=== PATIENT | male | born 1980 | race Hispanic/Latino ===

== ENCOUNTER 2019-11-10 05:14 | Emergency (ER) | payer BC, SELFPAY ==
[2019-11-10] MEDS ORDERED: VALACYCLOVIR 500 MG TAB ONE (05:36)
[2019-11-10] MEDS ORDERED: predniSONE 20 MG TAB ONE (05:37)
--- NOTE | 2019-11-10 10:00 | EDPHYS ---
Physician Documentation [facility] Name: Santhosh Flannery Age: 39 yrs Sex: Male : 1980 Arrival Date: 11/10/2019 Time: 05:19 Bed 5 Private MD: ED Physician Hans Celis HPI: 11/10 05:30 This 39 yrs old Male presents to ER via Ambulatory with complaints of right sided tw4 facial numbness. 05:30 The patient presents to the emergency department with paresthesias of the right side of tw4 the face, that is moderate. Onset: The symptoms/episode began/occurred 2 day(s) ago. Context: occurred at home. Associated signs and symptoms: The patient has no apparent associated signs or symptoms. Severity of symptoms: At their worst the symptoms were moderate. Patient's baseline: Neuro: alert and fully oriented, Motor: no deficits, Ambulation: walks without assistance. 2 day(s) ago, The patient has not experienced similar symptoms in the past. Historical: - Allergies: 05:27 Bactrim; wh - Home Meds: 05:27 lisinopril 20 mg Oral tab 1 tab once daily [Active]; metformin 1,000 mg Oral tab 1 tab wh 2 times per day [Active]; carvedilol oral oral [Active]; - PMHx: 05:27 Diabetes - NIDDM; High Cholesterol; Hypertension; wh - Immunization history:: Adult Immunizations up to date, Flu vaccine is not up to date. - Coronavirus screen:: The patient has NOT traveled to [place], [place], or [place] in the past 14 days. - Social history:: Smoking status: Patient/guardian denies using. - Ebola Screening: : Patient negative for fever greater than or equal to 101.5 degrees Fahrenheit, and additional compatible Ebola Virus Disease symptoms Patient denies exposure to infectious person. ROS: 05:30 Neuro: Positive for numbness, weakness. tw4 06:45 Constitutional: Negative for fever, chills, and weight loss, Eyes: Negative for injury, tw4 pain, redness, and discharge, Cardiovascular: Negative for chest pain, palpitations, and edema, Respiratory: Negative for shortness of breath, cough, wheezing, and pleuritic chest pain, Abdomen/GI: Negative for abdominal pain, nausea, vomiting, diarrhea, and constipation, MS/Extremity: Negative for injury and deformity, Skin: Negative for injury, rash, and discoloration. Exam: 05:30 Constitutional: This is a well developed, well nourished patient who is awake, alert, tw4 and in no acute distress. Head/Face: Normocephalic, atraumatic. Chest/axilla: Normal chest wall appearance and motion. Nontender with no deformity. No lesions are appreciated. Cardiovascular: Regular rate and rhythm with a normal S1 and S2. No gallops, murmurs, or rubs. Normal PMI, no JVD. No pulse deficits. Respiratory: Lungs have equal breath sounds bilaterally, clear to auscultation and percussion. No rales, rhonchi or wheezes noted. No increased work of breathing, no retractions or nasal flaring. Abdomen/GI: Soft, non-tender, with normal bowel sounds. No distension or tympany. No guarding or rebound. No evidence of tenderness throughout. Back: No spinal tenderness. No costovertebral tenderness. Full range of motion. MS/ Extremity: Pulses equal, no cyanosis. Neurovascular intact. Full, normal range of motion. 05:30 Neuro: Orientation: is normal, Mentation: is normal, Memory: is normal, Cranial nerves: grossly normal. Vital Signs: 05:30 BP 142 / 97; Pulse 105; Resp 18; Temp 98.1; Pulse Ox 98% ; Weight 117.93 kg; Height 5 wh ft. 10 in. (177.80 cm); Pain 0/10; 06:15 BP 125 / 90; Pulse 92; Resp 18; Pulse Ox 95% on R/A; wh 05:30 Body Mass Index 37.31 (117.93 kg, 177.80 cm) NIH Stroke Scale Scores: 05:29 NIHSS Score: 1 MDM: 05:20 Patient medically screened. tw4 05:30 Data reviewed: vital signs, nurses notes. Data interpreted: Pulse oximetry: tw4 Interpretation: normal. Test interpretation: by ED physician or midlevel provider:. Counseling: I had a detailed discussion with the patient and/or guardian regarding: the historical points, exam findings, and any diagnostic results supporting the discharge/admit diagnosis. Special discussion: Based on the patient's history, exam and DX evaluation, there is no indication for emergent intervention or inpatient TX. It is understood by the patient/guardian that if the SXs persist or worsen they need to return immediately for re-evaluation. Administered Medications: 05:34 Drug: Valtrex 1000 mg Route: PO; 06:18 Follow up: Response: No adverse reaction jv1 05:34 Drug: predniSONE 60 mg Route: PO; 06:18 Follow up: Response: No adverse reaction jv1 Disposition: 11/10/19 06:05 Discharged to Home. Impression: Pastor's palsy. - Condition is Stable. - Discharge Instructions: Pastor Palsy, Adult. - Prescriptions for Valtrex 1 g Oral Tablet - take 1 tablet by ORAL route every 8 hours for 7 days; 21 tablet. Medrol (Héctor) 4 mg Oral Tablets, Dose Pack - take 1 tablet by ORAL route as directed - follow package instructions; 1 packet. - Medication Reconciliation Form, Thank You Letter, Antibiotic Education, Prescription Opioid Use form. - Follow up: Private Physician; When: Upon discharge from the Emergency Department; Reason: Recheck today's complaints, Continuance of care. Follow up: Gaurav Adan MD; When: Upon discharge from the Emergency Department; Reason: Recheck today's complaints, Continuance of care, Re-evaluation by your physician. - Problem is new. - Symptoms are unchanged. NIH Stroke Scale - NIH Stroke Score Date: 11/10/2019 Time: 05:29 Total Score = 1 1a. Level of Consciousness (LOC) - 0(Alert) 1b. Level of Consciousness (LOC) (Year \T\ Age) - 0(Both) 1c. LOC Commands (Open \T\ Closes Eyes/Cathode Washer) - 0(Both) 2. Best Gaze (Lateral Gaze Paresis) - 0(Normal) 3. Visual Field Loss - 0(No visual loss) 4. Facial Palsy - 1(Minor Paralysis) 5a. Left Arm: Motor (10-second hold) - 0(No drift) 5b. Right Arm: Motor (10-second hold) - 0(No drift) 6a. Left Leg: Motor (5-second hold - always test supine) - 0(No drift) 6b. Right Leg: Motor (5-second hold - always test supine) - 0(No drift) 7. Limb Ataxia (finger/nose \T\ heel/grey - test with eyes open) - 0(Absent) 8. Sensory Loss (pinprick arms/legs/face) - 0(Normal) 9. Best Language: Aphasia (description/naming/reading) - 0(No aphasia) 10. Dysarthria (speech clarity - read or repeat words) - 0(Normal) 11. Extinction and Inattention (visual/tactile/auditory/spatial/personal) - 0(No abnormality) Initials: Signatures: Christine Kovacs Hans Celis MD MD tw4 Bela Robles RN jv1 Corrections: (The following items were deleted from the chart) 06:06 06:05 11/10/2019 06:05 Discharged to Home. Impression: Pastor's palsy. Condition tw4 is Stable. Forms are Medication Reconciliation Form, Thank You Letter, Antibiotic Education, Prescription Opioid Use. Follow up: Private Physician; When: Upon discharge from the Emergency Department; Reason: Recheck today's complaints, Continuance of care. Problem is new. Symptoms are unchanged. tw4 06:21 06:06 11/10/2019 06:05 Discharged to Home. Impression: Pastor's palsy. Condition wh is Stable. Discharge Instructions: Pastor Palsy, Adult. Prescriptions for Valtrex 1 g Oral Tablet - take 1 tablet by ORAL route every 8 hours for 7 days; 21 tablet, Medrol (Héctor) 4 mg Oral Tablets, Dose Pack - take 1 tablet by ORAL route as directed - follow package instructions; 1 packet. and Forms are Medication Reconciliation Form, Thank You Letter, Antibiotic Education, Prescription Opioid Use. Follow up: Private Physician; When: Upon discharge from the Emergency Department; Reason: Recheck today's complaints, Continuance of care. Follow up: Gaurav Adan; When: Upon discharge from the Emergency Department; Reason: Recheck today's complaints, Continuance of care, Re-evaluation by your physician. Problem is new. Symptoms are unchanged. tw4
--- NOTE | 2019-11-10 10:01 | ER ---
Nurse's Notes [facility] Name: Santhosh Flannery Age: 39 yrs Sex: Male : 1980 Arrival Date: 11/10/2019 Time: 05:19 Bed 5 Private MD: Diagnosis: Pastor's palsy Presentation: 11/10 05:25 Presenting complaint: Patient states: Right facial numbness that started Thursday. Transition of care: patient was not received from another setting of care. Onset of symptoms was November 08, 2019. Risk Assessment: Do you want to hurt yourself or someone else? Patient reports no desire to harm self or others. Initial Sepsis Screen: Does the patient meet any 2 criteria? No. Patient's initial sepsis screen is negative. Does the patient have a suspected source of infection? No. Patient's initial sepsis screen is negative. Care prior to arrival: None. 05:25 Method Of Arrival: Ambulatory 05:25 Acuity: YAZMIN 3 Historical: - Allergies: 05:27 Bactrim; - Home Meds: 05:27 lisinopril 20 mg Oral tab 1 tab once daily [Active]; metformin 1,000 mg Oral tab 1 tab wh 2 times per day [Active]; carvedilol oral oral [Active]; - PMHx: 05:27 Diabetes - NIDDM; High Cholesterol; Hypertension; wh - Immunization history:: Adult Immunizations up to date, Flu vaccine is not up to date. - Coronavirus screen:: The patient has NOT traveled to [place], [place], or [place] in the past 14 days. - Social history:: Smoking status: Patient/guardian denies using. - Ebola Screening: : Patient negative for fever greater than or equal to 101.5 degrees Fahrenheit, and additional compatible Ebola Virus Disease symptoms Patient denies exposure to infectious person. Screenin:29 Abuse screen: Denies threats or abuse. Denies injuries from another. Nutritional wh screening: No deficits noted. Tuberculosis screening: No symptoms or risk factors identified. VAN Screening: Arm Drift: Patient shows no arm weakness. Visual Disturbance: No visual disturbance noted. Aphasia: No aphasia noted. Neglect: No neglect noted. Fall Risk None identified. Assessment: 05:27 General: Appears in no apparent distress. Behavior is calm, cooperative, appropriate wh for age. Pain: Denies pain. Neuro: Level of Consciousness is awake, alert, obeys commands, Oriented to person, place, time, situation, Appropriate for age Care Team Assistant are equal bilaterally Moves all extremities. Gait is steady, Speech is normal, Facial droop on right, Pupils are PERRLA, Numbness in Right side of face. Cardiovascular: Heart tones S1 S2. Respiratory: Airway is patent Respiratory effort is even, unlabored, Respiratory pattern is regular, symmetrical, Breath sounds are clear bilaterally. GI: Abdomen is flat, non-distended. : No signs and/or symptoms were reported regarding the genitourinary system. EENT: No signs and/or symptoms were reported regarding the EENT system. Derm: Skin is intact, is healthy with good turgor, Skin is pink, warm \T\ dry. normal. Musculoskeletal: Circulation, motion, and sensation intact. 06:19 Reassessment: Patient appears in no apparent distress at this time. No changes from jv1 previously documented assessment. Patient and/or family updated on plan of care and expected duration. Pain level reassessed. Patient is alert, oriented x 3, equal unlabored respirations, skin warm/dry/pink. Vital Signs: 05:30 BP 142 / 97; Pulse 105; Resp 18; Temp 98.1; Pulse Ox 98% ; Weight 117.93 kg; Height 5 wh ft. 10 in. (177.80 cm); Pain 0/10; 06:15 BP 125 / 90; Pulse 92; Resp 18; Pulse Ox 95% on R/A; 05:30 Body Mass Index 37.31 (117.93 kg, 177.80 cm) NIH Stroke Scale Scores: 05:29 NIHSS Score: 1 ED Course: 05:19 Patient arrived in ED. 05:20 Hans Celis MD is Attending Physician. tw4 05:25 Christine Kovacs is Primary Nurse. 05:26 Triage completed. 05:30 Arm band placed on right wrist. 05:30 Patient has correct armband on for positive identification. Bed in low position. Call light in reach. Side rails up X 1. Pulse ox on. NIBP on. 06:06 Gaurav Adan MD is Referral Physician. tw4 06:19 No provider procedures requiring assistance completed. Patient did not have IV access jv1 during this emergency room visit. Administered Medications: 05:34 Drug: Valtrex 1000 mg Route: PO; 06:18 Follow up: Response: No adverse reaction jv1 05:34 Drug: predniSONE 60 mg Route: PO; 06:18 Follow up: Response: No adverse reaction jv1 Outcome: 06:05 Discharge ordered by . tw4 06:20 Discharged to home ambulatory. 06:20 Condition: stable 06:20 Discharge instructions given to patient, Instructed on discharge instructions, follow up and referral plans. medication usage, POC Demonstrated understanding of instructions, follow-up care, medications, POC Prescriptions given X 2. 06:21 Patient left the ED. NIH Stroke Scale - NIH Stroke Score Date: 11/10/2019 Time: 05:29 Total Score = 1 1a. Level of Consciousness (LOC) - 0(Alert) 1b. Level of Consciousness (LOC) (Year \T\ Age) - 0(Both) 1c. LOC Commands (Open \T\ Closes Eyes/Practice Administrator) - 0(Both) 2. Best Gaze (Lateral Gaze Paresis) - 0(Normal) 3. Visual Field Loss - 0(No visual loss) 4. Facial Palsy - 1(Minor Paralysis) 5a. Left Arm: Motor (10-second hold) - 0(No drift) 5b. Right Arm: Motor (10-second hold) - 0(No drift) 6a. Left Leg: Motor (5-second hold - always test supine) - 0(No drift) 6b. Right Leg: Motor (5-second hold - always test supine) - 0(No drift) 7. Limb Ataxia (finger/nose \T\ heel/grey - test with eyes open) - 0(Absent) 8. Sensory Loss (pinprick arms/legs/face) - 0(Normal) 9. Best Language: Aphasia (description/naming/reading) - 0(No aphasia) 10. Dysarthria (speech clarity - read or repeat words) - 0(Normal) 11. Extinction and Inattention (visual/tactile/auditory/spatial/personal) - 0(No abnormality) Initials: Signatures: Naida Ortiz, RN RN fc Christine Kovacs Hans Celis MD MD tw4 Bela Robles RN RN jv1
[2019-11-10 10:36] VITALS: TEMP 99; O2SAT 100
[2019-11-10 10:37] VITALS: BP 114/74
== END 2019-11-10 06:21 | disposition home or self-care (01) ==
LOC: ER 05:14
DX: G51.0 Bell's palsy (principal); Z88.1 Allergy status to other antibiotic agents; I10 Essential (primary) hypertension; E78.00 Pure hypercholesterolemia, unspecified
CPT/HCPCS: 99283; J7512